=== PATIENT | female | born 1970 | race Two or more races ===

== ENCOUNTER → 2024-10-31 | Outpatient (CLI) | payer MEDICAID, SELFPAY ==
--- NOTE | 2024-10-31 12:30 | XR_ITS ---
Examination: Breast ultrasound, unilateral, right Date and time of exam: October 31, 2024 1328 hours INDICATIONS: Right breast sonogram February 10, 2024 10:00 nodule 6 x 6 mm Technique: Real-time moreira scale ultrasonographic imaging performed right breast including all 4 quadrants as well as nipple retroareolar and axillary region. Findings: 10:00 nodule circumscribed 6 x 5 mm IMPRESSION: BI-RADS Category 2: Benign findings
--- NOTE | 2024-10-31 13:00 | XR_ITS ---
Examination: Diagnostic digital mammography, unilateral, right Computer aided detection 3-D breast Tomosynthesis, unilateral Date and time of exam: October 31, 2024 1223 hours INDICATIONS: Mammogram January 05, 2024 6 mm focal asymmetry upper right breast MLO view Technique: Nonmagnified MLO, CC views of the right breast have been obtained, reconstructed from 3-D Tomosynthesis images. R2 computer aided detection program utilized for evaluation of suspicious masses and/or abnormal calcifications. 3-D Tomosynthesis images obtained. Findings: The breast is heterogeneously dense, which may obscure small masses No suspicious nodule noted on the follow-up view Impression: BI-RADS category 2: Benign findings Recommend yearly follow-up mammography
== END | disposition home or self-care (01) ==
LOC: CDIM 12:57
PROVIDERS: PCP Nurse Practitioner Family; Referring Provider Specialist; Visit Provider Specialist
DX: R92.0 Mammographic microcalcification found on diagnostic imaging of breast (principal); R92.321 Mammographic fibroglandular density, right breast
CPT/HCPCS: 76641; 77061; 77065; G0279